=== PATIENT | male | born 1950 | race Caucasian/White ===

== ENCOUNTER 2016-05-25 17:51 | Emergency (ER) | payer MEDICARE, OTHER ==
[~2016-05-25 17:51] MED LIST: ASPIRIN81 MG PO; GLYBURIDE5 MG PO; NITROGLYCERIN0.4 MG SL; PANTOPRAZOLE SO40 MG PO; SYMBICORT 16060 PUFF INH; SYNTHROID25 MCG PO; VENTOLIN HFA8 GM IH; VITAMIN D250000 UNIT PO; ZESTRIL2.5 MG PO; ZOCOR40 MG PO
[2016-05-25 18:27] LABS: URINE BILIRUBIN NEGATIVE (NEGATIVE); URINE BLOOD NEGATIVE (NEGATIVE); URINE GLUCOSE (UA) NORMAL (NORMAL); URINE KETONE NEGATIVE (NEGATIVE); URINE LEUKOCYTE ESTERASE TRACE (NEGATIVE); URINE NITRATE NEGATIVE (NEGATIVE); URINE PROTEIN NEGATIVE (NEGATIVE)
[2016-05-25 18:37] LABS: BASO % 0.3 % (0.2-1.2); EOS # 0.1 10_X3_uL (0.0-0.5); EOS % 1.3 % (0.8-7.0); GRAN # 1.9 10_X3_uL (1.8-5.4); GRAN % 50.6 % (34.0-67.9); HEMATOCRIT 40.6 % (40-51); HEMOGLOBIN 14.1 g/dL (13.7-17.5); LYMPH # 1.2 10_X3_uL (1.3-3.6); LYMPH % 30.8 % (21.8-53.1); MEAN CORPUSCULAR HEMOGLOBIN 31.3 pg (27.0-33.0); MEAN CORPUSCULAR HGB CONC 34.7 g/dL (32.0-36.0); MEAN CORPUSCULAR VOLUME 90.2 fL (79-92); MEAN PLATELET VOLUME 8.7 fl (7.5-11.5); MONO # 0.7 10_X3_uL (0.3-0.8); PLATELET COUNT 158 x10_3/uL (163-337); RED CELL DISTRIBUTION WIDTH 12.4 % (11.6-14.4); WHITE BLOOD COUNT 3.8 x10_3/uL (4.2-9.1)
[2016-05-25 18:43] LABS: URINE WBC 0-5 /[HPF] (0-3)
[2016-05-25 18:54] LABS: BLOOD UREA NITROGEN 8 mg/dL (7-18); CALCIUM 8.4 mg/dL (8.7-10.7); CARBON DIOXIDE 24 mmol/L (21-32); CREATININE 0.9 mg/dL (0.6-1.3); GLUCOSE,RANDOM 124 mg/dL (70-99); POTASSIUM 3.7 mmol/L (3.5-5.1); SODIUM 135 mmol/L (136-145)
== END 2016-05-25 20:30 | disposition home or self-care (01) ==
LOC: ER 17:51
PROVIDERS: Emergency Medicine
DX: J06.9 Acute upper respiratory infection, unspecified (principal); M79.1 Myalgia; R10.31 Right lower quadrant pain; G89.29 Other chronic pain; M54.9 Dorsalgia, unspecified; I51.9 Heart disease, unspecified; J44.9 Chronic obstructive pulmonary disease, unspecified; Z95.1 Presence of aortocoronary bypass graft; H54.41 Blindness, right eye, normal vision left eye; Z79.891 Long term (current) use of opiate analgesic; Z88.0 Allergy status to penicillin
CPT/HCPCS: 36415; 80048; 81001; 85025; 87400; 99070; 99283-25; J7040; Q9967

== ENCOUNTER 2016-06-02 14:02 | Emergency (ER) | payer MEDICARE, OTHER | END 2016-06-02 14:31 | disposition home or self-care (01) | LOC: ER 14:02 | DX: J06.9 Acute upper respiratory infection, unspecified (principal) | CPT/HCPCS: 99282 ==